=== PATIENT | male | born 1960 | race Caucasian/White ===

== ENCOUNTER 2021-02-19 | Emergency (ER) | payer OTHER, MEDICARE ==
[~2021-02-19] VITALS: Ht 172.7 cm; Wt 83.9 kg
[2021-02-19] MEDS ORDERED: IBU800 M2 PO (02:07)
== END 2021-02-19 02:22 | disposition home or self-care (01) ==
LOC: ED
DX: M54.50 Low back pain, unspecified (principal); M79.671 Pain in right foot; Z88.0 Allergy status to penicillin; F17.200 Nicotine dependence, unspecified, uncomplicated